=== PATIENT | female | born 1960 | race Caucasian/White ===

== ENCOUNTER 2017-05-05 15:45 | Outpatient (CLI) | payer OTHER | END 2017-05-05 15:46 | disposition home or self-care (01) | LOC: BICMAMMO 15:45 | PROVIDERS: ATTEND Obstetrics & Gynecology | DX: Z12.31 Encounter for screening mammogram for malignant neoplasm of breast (principal); Z80.3 Family history of malignant neoplasm of breast | CPT/HCPCS: 77063; 77067 ==

== ENCOUNTER 2017-11-10 16:28 | Outpatient (CLI) | payer OTHER ==
[2017-11-10 17:03] LABS: Hemoglobin 13.9 g/dL (12.0-16.0); Mean Corpuscular HGB CONC 33.7 g/dL (32.0-36.0); Mean Platelet Volume 7.4 fL (7.4-10.4); Platelet Count 216 thou/uL (130-400); RBC Distribution Width 12.1 % (11.5-14.5); Red Blood Cell (RBC) Count 4.47 mill/uL (4.20-5.40); White Blood Cell (WBC) Count 6.6 thou/uL (4.8-10.8)
[2017-11-10 17:36] LABS: Anion Gap 14 mmol/L (10-20); BUN (Urea Nitrogen) 16 mg/dL (9.8-20.1); Calc. Creatinine Clearance 0 mL/min (70-130); Calcium 9.2 mg/dL (7.8-10.44); Carbon Dioxide 25 mmol/L (22-29); Chloride 105 mmol/L (98-107); Estimated GFR-MDRD 73; Glucose 72 mg/dL (70-105); Potassium 4.6 mmol/L (3.5-5.1); Sodium 139 mmol/L (136-145)
== END 2017-11-10 16:29 | disposition home or self-care (01) ==
LOC: LABBT 16:28
PROVIDERS: ATTEND Student in an Organized Health Care Education/Training Program
DX: Z01.812 Encounter for preprocedural laboratory examination (principal); D25.9 Leiomyoma of uterus, unspecified; N85.00 Endometrial hyperplasia, unspecified; N93.9 Abnormal uterine and vaginal bleeding, unspecified
CPT/HCPCS: 80048; 85027; 86850; 86900; 86901

== ENCOUNTER 2017-11-13 10:28 | Day surgery (SDC) | payer OTHER ==
[2017-11-10 17:33] VITALS: BMI 32.3
[2017-11-13] MEDS ORDERED: Gabapentin 300 MG CAP ONE (11:30)
[2017-11-13] MEDS ORDERED: Famotidine/PF 20 mg/2ml Vial ONE (11:30)
[2017-11-13] MEDS ORDERED: CeleCOXIB 100 MG CAP ONE (11:30)
[2017-11-13] MEDS ORDERED: CEFAZOLIN/Water 2 GM/20 ML SYRINGE ONE (11:47)
[2017-11-13] MEDS ORDERED: Scopolamine 1.5 mg/72 hour Patch ONE (13:13)
[2017-11-13] MEDS ORDERED: Fentanyl 100 MCG/2 ML VIAL ONE ×2 (13:37→14:36)
[2017-11-13] MEDS ORDERED: Bupivacaine HCl 0.5%/Epinephrine 1:200,000/PF 30 ml Vial ONE (13:40)
[2017-11-13] MEDS ORDERED: Glycopyrrolate 0.2 MG/ML 5 ML SYRINGE ONE (15:06)
[2017-11-13] MEDS ORDERED: Ondansetron HCl/PF 4 MG/2 ML Vial ONE (15:06)
[2017-11-13] MEDS ORDERED: Lidocaine 1% PF 5 ML VIAL ONE (15:06)
[2017-11-13] MEDS ORDERED: Succinylcholine Chloride 20 MG/ML 10 ml SYRINGE FS ONE (15:06)
[2017-11-13] MEDS ORDERED: diphenhydrAMINE 50 MG/ML VIAL ONE (15:06)
[2017-11-13] MEDS ORDERED: PROPOFOL 200 MG/20 ML VIAL ONE (15:06)
[2017-11-13] MEDS ORDERED: Dexamethasone 20 MG/5 ML VIAL ONE (15:06)
[2017-11-13] MEDS ORDERED: Bacitracin Zinc Ointment 30 gm TUBE ONE (16:25)
[2017-11-13] MEDS ORDERED: Zolpidem Tartrate 5 MG TAB PO PRN (16:30)
[2017-11-13] MEDS ORDERED: Ondansetron HCl/PF 4 MG/2 ML Vial IVP PRN (16:30)
[2017-11-13] MEDS ORDERED: Fentanyl 100 MCG/2 ML VIAL SLOW IVP PRN (16:30)
[2017-11-13] MEDS ORDERED: diphenhydrAMINE 25 MG CAP PO PRN (16:30)
[2017-11-13] MEDS ORDERED: Bisacodyl 10 MG SUPP PR PRN (16:30)
[2017-11-13] MEDS ORDERED: traMADol HCl 50 MG TAB PO PRN (16:30)
[2017-11-13] MEDS ORDERED: Simethicone Chewable 80 MG TAB PO PRN (16:30)
[2017-11-13] MEDS ORDERED: Promethazine HCl 25 MG/ML VIAL IM PRN (16:54)
[2017-11-13] MEDS ORDERED: Meperidine HCl/PF 25 MG/ML VIAL SLOW IVP PRN (16:54)
[2017-11-13] MEDS ORDERED: Promethazine HCl 25 MG/ML VIAL SLOW IVP PRN (16:54)
[2017-11-13] MEDS ORDERED: HYDROmorphone 2 MG/ML VIAL SLOW IVP PRN (16:54)
[2017-11-13] MEDS: Lactated Ringer's 1,000 ML IV SCH ×2 (17:42→21:04)
[2017-11-13] MEDS: Ketorolac Tromethamine 30 MG/ML VIAL IVP SCH ×2 (17:57→23:45)
[2017-11-13] MEDS: Acetaminophen 500 MG TAB PO SCH ×2 (17:57→23:05)
[2017-11-13] MEDS: traMADol HCl 50 MG TAB PO PRN (18:50)
[2017-11-13] MEDS ORDERED: Pravastatin Sodium 40 MG TAB PO SCH (21:00)
[2017-11-13] MEDS: Gabapentin 300 MG CAP PO SCH (21:05)
[2017-11-13] MEDS: Docusate Calcium (SURFAK) 240 MG CAP PO SCH (21:05)
[2017-11-14] MEDS: Acetaminophen 500 MG TAB PO SCH ×2 (05:15→10:47)
[2017-11-14] MEDS: Ketorolac Tromethamine 30 MG/ML VIAL IVP SCH (05:15)
[2017-11-14 06:28] LABS: Hemoglobin 12.4 g/dL (12.0-16.0); Mean Corpuscular HGB CONC 33.9 g/dL (32.0-36.0); Mean Corpuscular Hemoglobin 31.3 pg (27.0-31.0); Mean Corpuscular Volume 92.1 fL (78.0-98.0); Mean Platelet Volume 7.7 fL (7.4-10.4); Platelet Count 185 thou/uL (130-400); RBC Distribution Width 12.2 % (11.5-14.5); Red Blood Cell (RBC) Count 3.96 mill/uL (4.20-5.40)
[2017-11-14] MEDS ORDERED: Bupropion 150 MG XL TAB PO SCH (09:00)
[2017-11-14] MEDS ORDERED: Pravastatin Sodium 40 MG TAB PO SCH (09:00)
[2017-11-14] MEDS: traMADol HCl 50 MG TAB PO PRN (10:40)
[2017-11-14] MEDS: Gabapentin 300 MG CAP PO SCH (10:41)
[2017-11-14] MEDS: Docusate Calcium (SURFAK) 240 MG CAP PO SCH (10:43)
[2017-11-14 11:35] VITALS: BP 111/62; TEMP 98.2
--- NOTE | 2017-11-15 14:48 | OP ---
DATE OF OPERATION: 11/13/2017 PREOPERATIVE DIAGNOSES: 1. Simple hyperplasia without atypia. 2. Uterine fibroids. 3. Postmenopausal bleeding. POSTOPERATIVE DIAGNOSES: 1. Simple hyperplasia without atypia. 2. Uterine fibroids. 3. Postmenopausal bleeding. PROCEDURES: Robotic assisted total laparoscopic hysterectomy and bilateral salpingo-oophorectomy. ANESTHESIA: General endotracheal. ATTENDING SURGEON: Emily Arenas M.D. TREE SURGEON: Christiano Ray M.D. ESTIMATED BLOOD LOSS: 50 mL INTRAVENOUS FLUIDS: 1700 mL crystalloid. URINE OUTPUT: 120 mL of clear urine. COMPLICATIONS: None. DRAINS: Wallace catheter. PATHOLOGY: Uterus, cervix, bilateral fallopian tubes. FINDINGS: A small mobile uterus sounding to 7 cm. An approximately 3 cm subserosal left fundal fibr oid was present on intraabdominal survey. The ovaries and fallopian tubes were normal appearing and the upper abdomen was normal as well. OPERATIVE TECHNIQUE: The patient was taken to the operating room where general anesthesia was obtain ed without difficulty. The patient was prepped and draped in a sterile fashion in the dorsal lithoto my position. A Wallace catheter was placed in the bladder. Speculum was placed in the vagina. Anteri or lip of the cervix was grasped with single tooth tenaculum. The cervix was progressively dilated w nickie Lonny dilators and the uterus was sounded to 7 cm. The GAL manipulator was assembled with a 6 cm tip and a 3.5 cm colpotomizer ring. The manipulator tip was inserted to the uterine fundus. The sp eculum was removed out of the vagina and the colpotomizer ring was advanced to fit snugly around the cervix and the balloons were inflated and legs were placed in low lithotomy. Attention was turned to the abdomen. A 0.5% Marcaine with epinephrine was infiltrated into the umbilicus and a 12 mm skin i ncision was made in the umbilicus. Veress needle was passed into the abdomen noting an opening press ure of 3 mmHg. Pneumoperitoneum was obtained without difficulty. Veress needle was removed. The 12 mm trocar was passed into the abdomen and confirmed placement with robotic camera. Steep Trendelenb urg was obtained. The right and left 8 mm lower quadrant trocars were placed under direct visualizat ion after infiltrating with 0.5% Marcaine with epinephrine. A right upper quadrant 11 mm therapy administrative assistant p ort was then placed under direct visualization after infiltrating with anesthetic. The robot was doc ked to right robotic arm contained the monopolar scissors, left robotic arm contained a fenestrated b ipolar. The right fallopian tube was grasped and elevated and the ureter was noted to be running med ially to the IP ligament. The ovary was hugged and clamped with the fenestrated and cauterized x2 an d transected in the midportion and this cautery followed by transection was taken down around the mes ovarium to the level of the round ligament that was then clamped in the midportion cauterized and tra nsected with the scissors. The posterior leaf was then dropped down to the level of the uterosacral and the retroperitoneal fibers were dissected off of the uterine vessels. The ureter was also noted again running in the pelvic sidewall and well away from the internal cervical os. The anterior leaf of the broad ligament was dropped down to the level of the bladder flap and further skeletonization o f the vessels anteriorly was performed bluntly with a push and spread method with the fenestrated and sharply dissecting the adventitial fibers on cautery with the scissors. The bladder flap was then c reated undermining with the fenestrated to ensure a clear window and incising with the scissors on ca utery and blunt dissection was performed after incision with the backend of the scissors to bring the bladder well below the level of the colpotomizer ring. Attention was turned to the left side where the left fallopian tube was grasped and elevated. The ureter was again noted medial to the IP ligame nt. The ovary was hugged and clamped with the fenestrated and cauterized x2 and then incised and the mesovarium was clamped, cauterized, and transected down to the round ligament that was clamped and c auterized in the midportion and transected with the scissors. The posterior leaf was dropped down to the level of the uterosacral. The retroperitoneal fibers were bluntly dissected off with the push a nd spread method as described before. The anterior leaf of the broad ligament was dropped down to th e level of the bladder flap and adequate skeletonization of the vessels was performed. The bladder f lap was then completely developed scoring on the pubocervical fascia and again using blunt dissection to bring down any adventitial fibers below the level of the colpotomizer ring, the vessels were then clamped, cauterized and bilaterally and then anterior colpotomy was performed. Posterior colpotomy was performed. The vessels were lasting to again be clamped, cauterized and then transected just abo ve the level of the internal cervical os to allow the pedicle to fall well away. The vessels were th en dissected even further off of the vaginal cuff medially and the uterus was completely transected a nd removed into the vagina. The scissors were traded out for the needle refrigerated company driver. Hemostasis was achi eved. The vaginal cuff and bladder was backfilled and noted to have no bladder injury. Irrigation w as performed of the pelvis. The vaginal cuff was repaired with 2-0 PDS Stratafix suture in a running fashion incorporating vaginal mucosa in each bite and posterior peritoneum and there was excellent c losure. This was run back for several sutures and then cut and needle was removed out of the abdomen . Irrigation was then again performed of the pelvis and low pressure check was performed. Hemostasi s was noted to be excellent. All instruments were removed out of the abdomen. The robot was undocke d and pneumoperitoneum was released. The trocars were removed and the fascia of the umbilical port w as closed with 0 Vicryl in a [id number] fashion. The skin was closed with a 4-0 Monocryl in sub cuticular fashion. Dermabond was applied. The vaginal cuff was checked from below. There is no act sasha bleeding and excellent closure. All instruments were removed out of the vagina. The patient cortez erated procedure well. Sponge, lap, needle counts were correct x2. The patient was taken to recover y in stable condition. Patient received Ancef 2 grams prior to procedure.
[2017-11-18] MEDS ORDERED: Ibuprofen 800 MG TAB PO SCH (22:00)
--- NOTE | 2017-11-19 23:08 | DIS ---
DATE OF ADMISSION: 11/13/2017 DATE OF DISCHARGE: 11/14/2017 ADMISSION DIAGNOSES: 1. Simple hyperplasia, no atypia. 2. Uterine fibroids. 3. Postmenopausal bleeding. DISCHARGE DIAGNOSES: Status post robotic-assisted total laparoscopic hysterectomy, bilateral salping o-oophorectomy. DISCHARGE CONDITION: Stable. ATTENDING PHYSICIAN: Emily Arenas M.D. CONSULTATIONS: None. PROCEDURES: As listed in discharge diagnosis. History and physical, please see previously dictating H&P. HOSPITAL COURSE: A 57-year-old G0 presented to day stay to undergo scheduled surgery. She had an un complicated procedure with an estimated blood loss of 30 mL. Postoperatively, she went to the floor and was managed based on at [facility] protocol with IV Toradol, p.o. Tylenol, and as needed tramadol and the patient did well, voiding after surgery within 4 hours, tolerating a regular diet for dinner that night, and ambulating without difficulty. On postoperative day #1, her vital signs remained within normal limits. Her pain was well controlled and her postoperative hemoglobin was 12.4, hematocrit 36 .4. She was dispositioned for discharge on postoperative day #1 and follow up in my office in 2 week s' time pending at the time of discharge.
== END 2017-11-14 12:35 | disposition home or self-care (01) ==
LOC: SDC 10:28 → EDSTATUS 16:30 → 3SE 17:48 → SDC 11-14 12:35
PROVIDERS: ATTEND Student in an Organized Health Care Education/Training Program
PROC: 0UT24ZZ Resection of Bilateral Ovaries, Percutaneous Endoscopic Approach (ICD-10-PCS; principal; 2017-11-13)
PROC: 0UT74ZZ Resection of Bilateral Fallopian Tubes, Percutaneous Endoscopic Approach (ICD-10-PCS; principal; 2017-11-13)
PROC: 0UT94ZZ Resection of Uterus, Percutaneous Endoscopic Approach (ICD-10-PCS; principal; 2017-11-13)
DX: D25.9 Leiomyoma of uterus, unspecified (principal); N80.0 Endometriosis of uterus; N83.291 Other ovarian cyst, right side; Z79.899 Other long term (current) drug therapy; Z88.2 Allergy status to sulfonamides
CPT/HCPCS: 36415; 85027; 88307; J0670; J1100; J1200; J1885; J2001; J2405; J2704; J3010; S0028

== ENCOUNTER 2018-05-04 08:04 | Outpatient (CLI) | payer BC | END 2018-05-04 08:05 | disposition home or self-care (01) | LOC: BICMAMMO 08:04 | PROVIDERS: ATTEND Obstetrics & Gynecology | DX: Z12.31 Encounter for screening mammogram for malignant neoplasm of breast (principal); Z80.3 Family history of malignant neoplasm of breast | CPT/HCPCS: 77063; 77067 ==

== ENCOUNTER 2018-06-01 09:30 | Outpatient (CLI) | payer BC ==
--- NOTE | 2018-06-01 10:43 | BD ---
DEXA BONE DENSITY EXAM: COMPARISON: None. HISTORY: A 58-year-old postmenopausal female for screening. FINDINGS: Lumbar Spine: BMD (g/cm2) L1 0.939 T-Score: -0.5 L2 0.886 T-Score: -1.3 L3 0.877 T-Score: -1.9 L4 0.786 T-Score: -2.5 L1-L4 0.865 T-Score: -1.7 Femoral Neck: 0.657 T-Score: -1.7 Total Femur: 0.888 T-Score: -0.4 Impression: Osteopenia. This patient has a 10-year WHO fracture risk for a major osteoporotic fracture of a 7.6% and a hip fracture 0.7%. POS: C
== END 2018-06-01 09:31 | disposition home or self-care (01) ==
LOC: BICMAMMO 09:30
PROVIDERS: ATTEND Obstetrics & Gynecology
DX: Z13.820 Encounter for screening for osteoporosis (principal); M85.89 Other specified disorders of bone density and structure, multiple sites
CPT/HCPCS: 77080

== ENCOUNTER 2018-06-01 12:34 | Outpatient (CLI) | payer BC ==
--- NOTE | 2018-06-01 13:13 | RAD ---
LUMBAR SPINE SERIES 4 VIEWS: Date: 06/01/18 HISTORY: Back and left hip pain. FINDINGS: The vertebral bodies are normal in height. Disc spaces are all relatively well preserved. Pedicles ap pear intact. Some degenerative facet changes of lower lumbar spine are present. IMPRESSION: Mild arthritic changes of spine. POS: [facility]
--- NOTE | 2018-06-01 14:13 | MRI ---
NONCONTRAST MRI LUMBAR SPINE: DATE: 06/01/2018. HISTORY: Pain lumbosacral region. Lumbar radiculopathy. Left hip and back pain. No known injury. COMPARISON: 11/16/2006. FINDINGS: Retroperitoneal structures demonstrate a normal MRI appearance. Conus medullaris is normal in appearance and again terminates at the level of the L1 vertebral body. There is mild nonspecific heterogeneity in the bone marrow which is unchanged from prior exam. T11-12 level: There is a mild disk-osteophyte complex that slightly narrows the ventral subarachnoid space. This was also seen on the prior study and not significantly changed. Neural foramen at this level are patent. T12-L1 level: There is no significant disk bulge or disk herniation. Central spinal canal and neura l foramina are patent. L1-2 level: There is minimal disk-osteophyte complex without significant narrowing of the central sp inal canal. Neural foramen are patent. L2-3 level: There is minimal disk-osteophyte complex, central spinal canal and neural foramina are p atent. There is only very slight mass effect on the anterior aspect of the thecal sac. L3-4 level: There is mild disk-osteophyte complex, and there is no significant narrowing of the cent ral spinal canal, and the neural foramina are patent. L4-5 level: There is minimal disk-osteophyte complex, central spinal canal and neural foramina are p atent. There is an rounded increased T2 weighted signal intensity structure seen within the right ne ural foramen at this level likely related to small dilated nerve root sleeve. There are facet degene rative changes at this level. L5-S1 level: There is loss of intervertebral disk height. There is a small central disk protrusion. This results in only slight mass effect on the central anterior aspect of the thecal sac. There is no significant narrowing of the central spinal canal, and the neural foramen are patent. There are moderate facet hypertrophic changes present. IMPRESSION: 1. Mild degenerative changes in the lumbar spine. Mild disk-osteophyte complexes as described above have progressed when compared to prior study in 2006, but there is no significant narrowing of the c entral spinal canal or neural foramina at any level of the lumbar spine. 2. 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 POS: [facility]
== END 2018-06-01 12:35 | disposition home or self-care (01) ==
LOC: TBSIIMAG 12:34
PROVIDERS: ATTEND Surgery
DX: M47.26 Other spondylosis with radiculopathy, lumbar region (principal)
CPT/HCPCS: 72110; 72148

== ENCOUNTER 2018-10-31 09:23 | Outpatient (CLI) | payer BC ==
[2018-10-31 11:08] LABS: Estimated GFR-MDRD - POC Greater than 90
--- NOTE | 2018-10-31 17:40 | CT ---
CT ANGIOGRAM CHEST CT ANGIOGRAM ABDOMEN CT ANGIOGRAM PELVIS CT CHEST AND CT ABDOMEN WITHOUT CONTRAST 10/31/18 HISTORY: Aortic ectasia. COMPARISON: Chest radiograph 09/27/18. FINDINGS: CT of the chest and abdomen performed after the intravenous administration of contrast. 3D rendering provided. On the noncontrast portion of the examination, no intrarenal hematoma. No nephrolithiasis. Aortic si ze is as follows: Aortic valve: 22 mm. Sinuses of Valsalva: 33 mm. Sinotubular junction: 28 mm. Mid ascending aorta: 33 mm. Transverse aorta: 25 mm. Mid descending thoracic aorta: 2 cm. No aneurysmal dilatation of the aorta. No dissection. Lungs are clear. No pneumothorax. No effusion. No pericardial effusion. Prior cholecystectomy. Spleen is unremarkable as well as the pancreas. No hydronephrosis. Adrenal gla nds are unremarkable. No free intraperitoneal gas or fluid. Sternum and manubrium are intact. Celiac trunk, superior mesenteric arteries are both patent. No acute displaced rib fracture. IMPRESSION: Normal appearance of the aorta without aneurysmal dilatation nor dissection. POS: [facility]
== END 2018-10-31 09:24 | disposition home or self-care (01) ==
LOC: SCSCT 09:23
PROVIDERS: ATTEND Internal Medicine Cardiovascular Disease
DX: I77.819 Aortic ectasia, unspecified site (principal)
CPT/HCPCS: 71275; 74175; 82565

== ENCOUNTER 2020-08-21 19:29 | Outpatient (CLI) | payer BC | END 2020-08-21 19:30 | disposition home or self-care (01) | LOC: SCSRAD 19:29 | PROVIDERS: ATTEND Physician Assistant Medical | DX: R11.0 Nausea (principal); Z90.49 Acquired absence of other specified parts of digestive tract | CPT/HCPCS: 74018 ==